=== PATIENT | male | born 1970 | race Hispanic/Latino ===

== ENCOUNTER 2022-02-03 18:30 | Emergency (ER) | payer OTHER ==
[~2022-02-03] VITALS: Ht 167.6 cm; Wt 104.3 kg
[2022-02-03] MEDS ORDERED: SODIUM CHLORIDE 0.9% 1000ML 1,000 ML IV STA ×2 (18:41)
[2022-02-03] MEDS ORDERED: SODIUM CHLORIDE 0.9% 1000ML 2,000 ML ONE (18:58)
[2022-02-03 18:59] LABS: BASOPHILS % 0.2 % (0.0-1.0); EOSINOPHILS # (AUTO) 0.1 (0.0-0.4); EOSINOPHILS % 0.9 % (0.0-6.0); HEMATOCRIT 50.3 % (38.2-49.6); LYMPHOCYTES # (AUTO) 2.5 (1.0-3.2); LYMPHOCYTES % 21.3 % (18.0-39.1); MEAN CORPUSCULAR HEMOGLOBIN 29.8 pg (28-32); MEAN CORPUSCULAR HGB CONC 31.8 g/dL (31-35); MEAN CORPUSCULAR VOLUME 93.7 fL (81-99); MONOCYTES # (AUTO) 0.8 (0.2-0.8); MONOCYTES % 7.2 % (4.4-11.3); NEUTROPHILS # (AUTO) 8.1 (2.1-6.9); PLATELET COUNT 260 x10e3/uL (140-360); RED BLOOD COUNT 5.37 x10e6/uL (4.3-5.7); RED CELL DISTRIBUTION WIDTH 13.4 % (11.7-14.4)
[2022-02-03 19:16] LABS: ALANINE AMINOTRANSFERASE 61 IU/L (0-55); ALBUMIN 4.4 g/dL (3.5-5.0); ALKALINE PHOSPHATASE 98 IU/L (40-150); BLOOD UREA NITROGEN 18 mg/dL (7-26); BUN/CREATININE RATIO 9 (6-25); CALCIUM 9.8 mg/dL (8.4-10.2); CARBON DIOXIDE 28 mmol/L (22-29); CHLORIDE 101 mmol/L (98-107); CREATINE KINASE 192 IU/L (30-200); CREATININE, SERUM 2.04 mg/dL (0.72-1.25); GLUCOSE 115 mg/dL (74-118); SODIUM 142 mmol/L (136-145)
[2022-02-03 22:21] LABS: ANION GAP 13.7 mmol/L (8-16); CALCIUM 8.6 mg/dL (8.4-10.2); CREATININE, SERUM 1.2 mg/dL (0.72-1.25); POTASSIUM 4.7 mmol/L (3.5-5.1)
== END 2022-02-03 23:02 | disposition home or self-care (01) ==
LOC: ER 18:35
DX: E86.0 Dehydration (principal); N19 Unspecified kidney failure
CPT/HCPCS: 36415; 71045; 80048; 80053; 82550; 82553; 83690; 83880; 84484; 85025; 93005; 99284; J7030

== ENCOUNTER 2022-11-28 11:36 | Emergency (ER) | payer OTHER ==
[~2022-11-28] VITALS: Ht 167.6 cm; Wt 104.3 kg
[2022-11-28] MEDS ORDERED: BACITRACIN ZINC 0.9GM TP ONE ×2 (12:04→12:15)
[2022-11-28] MEDS ORDERED: TETANUS/DIPHTHERIA TOX ADULT 0.5 ML SYR ONE (12:04)
[2022-11-28] MEDS ORDERED: LIDOCAINE HCL 1% LOCAL INJ 20 ML VIAL ONE (12:04)
[2022-11-28] MEDS ORDERED: CEPHALEXIN 500 MG CAP ONE (12:08)
[2022-11-28] MEDS ORDERED: LIDOCAINE HCL 2% LOCAL 20 ML VIAL INJ ONE (12:15)
[2022-11-28] MEDS ORDERED: CEPHALEXIN 500 MG CAP PO ONE (12:30)
[2022-11-28] MEDS ORDERED: TETANUS/DIPHTHERIA TOX ADULT 0.5 ML SYR IM ONE (12:30)
[2022-11-28] MEDS ORDERED: KEFLEX125 MG/5 M PO (12:36)
== END 2022-11-28 13:15 | disposition home or self-care (01) ==
LOC: ER 12:07
DX: S81.812A Laceration without foreign body, left lower leg, initial encounter (principal); W26.8XXA Contact with other sharp object(s), not elsewhere classified, initial encounter; Y99.0 Civilian activity done for income or pay
CPT/HCPCS: 12002; 62270; 90471; 90714; 99283; J2001